=== PATIENT | female | born 1970 | race Caucasian/White ===

== ENCOUNTER 2017-03-31 13:05 | Emergency (ER) | payer OTHER, MEDICAID ==
[~2017-03-31] VITALS: Ht 154.9 cm; Wt 49.9 kg
[~2017-03-31 13:05] MED LIST: CIPRO500 MG PO; TRAZODONE HCL100 MG PO; VALIUM5 MG PO
[2017-03-31] MEDS ORDERED: LIORESAL 10 MG10 MG PO (13:12)
[2017-03-31 14:29] LABS: CALCIUM 8.8 mg/dL (8.5-10.1); CREATININE 0.8 mg/dL (0.6-1.3); MAGNESIUM 2.1 mg/dL (1.8-2.4); POTASSIUM 3.9 mmol/L (3.5-5.1)
[2017-03-31 15:02] VITALS: BP 136/85
== END 2017-03-31 15:02 | disposition home or self-care (01) ==
LOC: M.ERS 13:05
PROVIDERS: Nurse Practitioner Family
DX: M62.838 Other muscle spasm (principal); M54.9 Dorsalgia, unspecified; F20.0 Paranoid schizophrenia; F17.210 Nicotine dependence, cigarettes, uncomplicated; F12.20 Cannabis dependence, uncomplicated; Z88.8 Allergy status to other drugs, medicaments and biological substances